=== PATIENT | female | born 1960 | race Caucasian/White ===

== ENCOUNTER 2017-04-03 12:20 | Emergency (ER) | payer MEDICAID, OTHER ==
[~2017-04-03] VITALS: Wt 57.5 kg
[~2017-04-03 12:20] MED LIST: ADV25050 INHALATION; ASPI-664 PO; CLOP75TA27 PO; LISI2.5T59 PO; METO25TA4 PO; SIMV5TAB50 PO
[2017-04-03] MEDS ORDERED: METHYLPREDNISOLONE 125 MG INJ IV STA (12:40)
[2017-04-03] MEDS ORDERED: ALBUTEROL 0.083% (NEB) 2.5 MG/3 ML AMP NEB STA (12:40)
[2017-04-03] MEDS ORDERED: IPRATROPIUM (NEB) 0.5 MG/2.5 ML AMP NEB STA (12:40)
[2017-04-03] MEDS ORDERED: LISI20TA11 PO (12:54)
[2017-04-03] MEDS ORDERED: ALBU2.5V3 NEB (12:56)
[2017-04-03] MEDS ORDERED: ALBU18HF INHALATION ×2 (12:56→14:39)
[2017-04-03] MEDS ORDERED: ATOR80TA75 PO (12:56)
[2017-04-03] MEDS ORDERED: FLUT100B INHALATION (12:57)
[2017-04-03 13:19] LABS: ADD SCAN DIFF NO
[2017-04-03 13:22] LABS: BASOPHIL # 0.1 10^3/ul (0.0-0.1); BASOPHILS % 0.6 % (0.0-2.0); EOSINOPHILS # 0.3 10^3/ul (0.0-0.5); EOSINOPHILS % 3.3 % (0.0-7.0); HEMATOCRIT 50.4 % (37.0-47.0); HEMOGLOBIN 16.4 g/dl (12.0-16.0); LYMPHOCYTES # 2.3 10^3/ul (0.8-2.9); LYMPHOCYTES % 27.2 % (15.0-51.0); MEAN CORPUSCULAR HEMOGLOBIN 30.2 pg (29.0-33.0); MEAN CORPUSCULAR HGB CONC 32.5 g/dl (32.0-37.0); MEAN CORPUSCULAR VOLUME 92.8 fl (82.0-101.0); MEAN PLATELET VOLUME 8.8 fl (7.4-10.4); MONOCYTE # 0.7 10^3/ul (0.3-0.9); MONOCYTES % 8.8 % (0.0-11.0); NEUTROPHIL # 4.9 10^3/ul (1.6-7.5); NEUTROPHILS % 59.9 % (39.0-77.0); PLATELET COUNT 386 10^3/UL (140-415); RED BLOOD COUNT 5.43 10^6/ul (4.20-5.40); RED CELL DISTRIBUTION WIDTH 12.8 % (11.5-14.5); WHITE BLOOD COUNT 8.3 10^3/ul (4.8-10.8)
[2017-04-03 13:36] LABS: INR 0.9; PROTIME 12.1 Sec (12.2-14.2); PT RATIO 0.9
--- NOTE | 2017-04-03 13:36 | RADRPT ---
PROCEDURE: XR Chest 1 View. CLINICAL INDICATION: Chest pain TECHNIQUE: AP view of the chest was obtained. COMPARISON: July 29, 2016 FINDINGS: The cardiomediastinal silhouette is within normal limits. Lungs are hyperexpanded. Chronic mild int erstitial prominence is seen in both lungs. No consolidations are identified. No pneumothorax is se en. Osseous structures are intact. IMPRESSION: Hyperexpanded lungs with chronic mild interstitial prominence in both lungs. Findings could reflect COPD. RPTAT: AA .David Yanes MD, Date Time Electronically viewed and signed by .David Yanes MD, on 04/03/2017 13:36 .P/
[2017-04-03 13:37] LABS: PARTIAL THROMBOPLASTIN TIME 25.1 Sec (25.0-35.0)
[2017-04-03 13:42] LABS: ANION GAP 14 (8-16); BLOOD UREA NITROGEN 9 mg/dl (7-20); CALCIUM 9.9 mg/dl (8.4-10.2); CARBON DIOXIDE 20 mmol/L (21-31); CHLORIDE 109 mmol/L (97-110); CREATININE 0.61 mg/dl (0.44-1.00); GLUCOSE 101 mg/dl (70-220); POTASSIUM 4.5 mmol/L (3.5-5.1); SODIUM 138 mmol/L (135-144)
[2017-04-03 14:06] LABS: TROPONIN-I < 0.012 ng/ml (0.00-0.12)
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
[2017-04-03] MEDS ORDERED: PRED20TA PO (14:39)
[2017-04-03 14:46] VITALS: BP 152/93; PULSE 86; RESP 19
== END 2017-04-03 14:47 | disposition home or self-care (01) ==
LOC: E/R 12:20
DX: J44.1 Chronic obstructive pulmonary disease with (acute) exacerbation (principal); Z79.82 Long term (current) use of aspirin; Z87.891 Personal history of nicotine dependence; Z98.61 Coronary angioplasty status
CPT/HCPCS: 71010; 80048; 84484; 85025; 85610; 85730; 93005; 94664; J2930; Z7610; 36415; 96374